=== PATIENT | female | born 1945 | race Caucasian/White ===

== ENCOUNTER 2016-11-27 01:46 | Inpatient (IN) | payer MEDICARE ==
[2016-11-27] VITALS (21 sets, daily range): BP systolic 90–213; BP diastolic 45–92; PULSE 81–110; RESP 18–35; O2SAT 88–98
[~2016-11-27] VITALS: Ht 165.1 cm; Wt 85.8 kg
[~2016-11-27 01:46] MED LIST: ACET325C PO; ALBU8.5H2 INHALATION; ARFO15VI2 NEB; ASPI-973 PO; ATEN25TA PO; CLOB50FO8 TP; CLOP75TA28 PO; Fish Oil PO; GLIM2TAB2 PO; IPRA3AMP IH; ISOS30TA4 PO; LIP40 PO; MAGN400O4 PO; MINO100C3 PO; NITR0.4T6 SL; SYMINH INHALATION; VENL75CA PO
[2016-11-27] MEDS ORDERED: Albuterol 2.5 mg/3 mL Inhalation Solution NEB ONE (01:55)
[2016-11-27] MEDS ORDERED: MethylprednisoLONE Sodium Succinate 62.5 mg/mL 2 mL Inj IVPUSH ONE (01:55)
[2016-11-27] MEDS ORDERED: Magnesium Sulf 2 Gm/50mL Water 2 GM in IV Premix 1 EACH IV ONE (01:55)
--- NOTE | 2016-11-27 01:58 | ED.REPORT ---
HPI-General Illness Date of Service Nov 27, 2016 ED Provider: Sarath Huang MD Patient is a 71 year old female with a history of diabetes mellitus, coronary artery disease with cardiac stenting, and severe COPD on 2L home oxygen and nighttime BiPAP who presents to the ED in respiratory distress onset 10:30 pm this evening. Patient was found by EMS to be pale, dusky, and hunched over. She had an initial O2 sat in the 60s. With nebulizer treatments and increased oxygen (6L) her O2 was increased to 91% on arrival to the ED. The patient is DNR /DNI, but EMS was unable to locate her POLST form. The patient was very anxious and appeared to be experiencing some mental status changes. History is limited by the patient's respiratory distress. She is a former smoker, stopping about ten years ago. Nursing Notes Stated Complaint: COPD Chief Complaint: Respiratory Distress Nursing Notes Reviewed: Yes Allergies: Coded Allergies: morphine (Verified Allergy, Severe, n&v, rash, 06/19/16) Uncoded Allergies: ADHESIVE TAPE (Allergy, Severe, RASH, 07/07/13) Scheduled ([Fish Oil]) PO BID Albuterol HFA (Proair HFA) 8.5 Gm Hfa.aer.ad 2 PUFFS INHALATION Q4H Arformoterol Tartrate (Brovana) 15 Mcg/2 Ml Vial.neb 15 MCG NEB BID Aspirin (Aspirin) 81 Mg Tablet 81 MG PO DAILY Atenolol (Atenolol) 25 Mg Tablet 25 MG PO BID Atorvastatin (Lipitor) 40 Mg Tablet 40 MG PO DAILY Budesonide/Formoterol 160-4.5 mcg Inh (Symbicort 160-4.5 mcg Inh) 120 Puff Inhaler 1 PUFF INHALATION BID Clopidogrel (Clopidogrel) 75 Mg Tablet 75 MG PO DIRECTED Every other day Glimepiride (Glimepiride) 2 Mg Tablet 2 MG PO DAILY Isosorbide MN ER (Isosorbide MN ER) 30 Mg Tab.er.24h 30 MG PO DAILY Magnesium Hydroxide (Milk of Magnesia) 400 Mg/5 Ml Oral.susp 400 MG PO HS Minocycline (Minocycline) 100 Mg Capsule 100 MG PO DAILY Venlafaxine ER (Effexor XR) 75 Mg Capsule 100 MG PO DAILY Scheduled PRN Acetaminophen (Acetaminophen) 325 Mg Capsule 325 MG PO PRN For Pain Ipratropium/Albuterol Sulfate (Iprat-Albut 0.5-3(2.5) mg/3 mL Inhalant Soln) 3 Ml Ampul.neb 3 ML IH Q6 PRN PRN For Shortness of Breath Miscellaneous Medications Clobetasol Propionate/Emoll (Clobetasol Emollnt 0.05% Foam) 50 Gm Foam 50 GM TP Nitroglycerin SL (Nitroglycerin SL) 0.4 Mg Tab.subl 0.4 MG SL General Time Seen by MD: 01:51 Chief Complaint Breathing problem Hx Obtained From: EMS Unable to Obtain Hx: Patient condition Arrived By: Ambulance Sudden in Onset?: No Onset Occurred: 1 - 4 hours ago Symptom Duration: Since onset Recent Healthcare: No recent doctor visit, No recent hospitalization Similar Sx Previous: Yes Past Medical History Past Medical History Severe chronic obstructive pulmonary disease -chronic respiratory failure, oxygen dependent Atherosclerotic coronary artery disease, cerebrovascular disease status-post several PCIs, 2 stents placed in 2003 and 3 stents placed in 2005 at [facility] [address] [place] -ECHO 2011 mild LVH, EF 60-65%, moderately dilated LA Atypical chest pain, with admissions in 2007, and February,Mar 2009, Aug 2009 -cardiac cath 2007,2008 at showing absence of any high-grade stenosis with only multiple, 30% lesions throughout the LAD without any evidence of restenosis Obstructive sleep apnea, on CPAP Reports: Diabetes mellitus, Hyperlipidemia, Hypertension Past Surgical History Hysterectomy Cholecystectomy Left carotid endarterectomy Cardiac stent placement x5 Smoking History Former Smoker Social History DNR/DNI Other Social History: Local resident Ambulatory Status Independent Review of Systems Unable to Obtain ROS Patient condition (respiratory distress) Physical Exam Vital Signs Vital Signs Date Time Temp Pulse Resp B/P Pulse Ox O2 Delivery O2 Flow Rate FiO2 11/27/16 03:43 95 28 92 BiPAP 50 11/27/16 03:31 94 30 122/84 93 BiPAP 11/27/16 03:08 31 97 50 11/27/16 03:00 98 30 126/60 97 BiPAP 11/27/16 02:15 106 31 178/61 96 BiPAP 11/27/16 01:52 110 35 213/92 88 15 Initial VS: Reviewed Skin: Warm, Dry, No cyanosis General/Constitutional: Awake, Alert Alertness: Positive: Confused Distress / Hydration: Positive: Distress moderate, Distress severe staring off Head / Eyes: Atraumatic, Normocephalic, PERRL ENT: Airway patent, Mucous membranes moist Neck: Supple, Non-tender Resp Distress / Stridor: Positive: Resp distress severe Diminished Breath Sounds: Positive: Decreased bilateral (barely audible) tripoding, maximal respiratory effort Cardiovascular: Regular rhythm Heart Rate / Rhythm: Positive: Tachycardia Heart Sounds / Murmur: Positive: Heart sounds diminished Abdomen: Soft, Non-tender Upper Extremities Upper Extremity / MS: No swelling, No edema Lower Extremity / Pelvis / MS: No swelling, No edema Neurologic: No motor deficits, No sensory deficits, CN II - XII intact Mental Status: Positive: Confused Interpretation & Diagnostics Lab Results Interpretation Result Diagram: 11/27/16 0210 11/27/16 0210 Test 11/27/16 02:10 White Blood Count 7.7th/mm3 (3.8-10.1) Red Blood Count 5.49mil/mm3 (3.90-5.20) Hemoglobin 15.5g/dL (12.0-15.6) Hematocrit 50.3% (35.0-46.0) Mean Corpuscular Volume 91.6fL (81-100) Mean Corpuscular Hemoglobin 28.2pg (27.0-35.0) Mean Corpuscular Hemoglobin Concent 30.8% (32.0-37.0) Red Cell Distribution Width 13.7% (12.3-15.4) Platelet Count 145bil/L (150-400) Neutrophils (%) (Auto) 61.0% (40-74) Lymphocytes (%) (Auto) 23.1% (14-46) Monocytes (%) (Auto) 14.6% (4-12) Eosinophils (%) (Auto) 0.3% (0-5) Basophils (%) (Auto) 0.7% (0-3) Sodium Level 136mEq/L (134-144) Potassium Level 4.4mEq/L (3.5-5.2) Chloride Level 95mEq/L (97-108) Carbon Dioxide Level 29mmol/L (18-29) Blood Urea Nitrogen 13mg/dL (8-27) Creatinine 0.47mg/dL (0.57-1.00) Estimat Glomerular Filtration Rate 188mL/min (>59) Glucose Level 230mg/dL (60-99) Calcium Level 9.7mg/dL (8.5-10.1) Magnesium Level 2.6mg/dL (1.6-2.6) Total Bilirubin 0.4mg/dL (0.0-1.2) Aspartate Amino Transf (AST/SGOT) 45U/L (0-50) Alanine Aminotransferase (ALT/SGPT) 51U/L (0-32) Alkaline Phosphatase 91U/L (25-165) Troponin T 0.010ug/L (0.0-0.011) Pro-B-Type Natriuretic Peptide 324.8pg/mL (0-301) Total Protein 7.4g/dL (6.4-8.4) Albumin 4.3g/dL (3.4-5.0) Hold Cavanaugh Top Tube Received (Received) ECG Interpretation ECG Interpretation: Sinus tachycardia, Rate 109 Biatrial enlargement Anterior infarct, old Time: 02:05 Interpreted by: ED physician X-Ray Chest Interpretation Chest Xray Interpretation: Impression: Increased markings bilateral lower lobes. May be a lingular infiltrate. View: Portable Interpretation / Wet Read by: Wet read ED physician Reviewed Previous Films: Worse Re-Eval/Medical Decision Med Decision/Clinical Course 71-year-old female in respiratory distress really respiratory extremist initially, improving slowly with multiple nebs and steroids and IV magnesium. She is on BiPAP and improving slowly. She declines intubation ever. She appears to be rallying at this point and will not require any more advanced intervention. She is admitted to the PCU for further nebs and management on BiPAP. Transported in improved condition. Source of Hx: Old records Time of Eval: 02:17 Re-Evaluation/Progress Note: Rechecked the patient. She now appears to have altered mental status, confused and waving. She is on BiPAP and is only mildly improved. Time of Eval: 03:34 Re-Evaluation/Progress Note: Informed the patient that she will be admitted to the hospital for further care. She is now able to have a conversation and drink coffee. Consultation : Referral / Consult Name: Corinna Andersen DO Consulted With: Hospitalist Call Returned at: 03:42 Keno Terminal Operator: Will see patient, Agrees with eval, Agrees with plan, Accepts admit Note: Spoke with Dr. Andersen, hospitalist, who agrees to accept admit. Counseled Regarding: Diagnosis, Lab results, Need for admission Discharge & Departure Primary Impression: COPD exacerbation Additional Impression: Respiratory failure Chronicity: acute Respiratory failure complication: hypoxia Qualified Code : J96.01 - Acute respiratory failure with hypoxia Disposition: ADMITTED TO HOSPITAL Discharge Condition All VS Reviewed: Yes Condition: Improved Referrals: Ryan Vu MD (PCP) Crit Care Except Billable Proc Time Spent: 30-74 minutes (sixty minutes) Services Performed: Patient management by me, Time spent at bedside, Reviewing test results, Reviewing imaging, Discussing patient care, Documentation in record, Time with fam/surrogate Scribe Attestation Portions of this note were transcribed by Tiesha Centeno. Dr. Sal Pryor personally performed the history, physical exam and medical decision-making; I reviewed and confirmed the accuracy of the information in the transcribed note. Signed by: Alex Zafar, 11/27/2016 0354 copies to: Ryan Vu MD, Christopher W MD Nov 27, 2016 01:58 Tiesha Centeno Nov 27, 2016 01:59 confused and waving. She is on BiPAP and is only mildly improved. Time of Eval: 03:34 Re-Evaluation/Progress Note: Informed the patient that she will be admitted to the hospital for further care. She is now able to have a conversation and drink coffee. Counseled Regarding: Diagnosis, Lab results, Need for admission Discharge & Departure Primary Impression: COPD exacerbation Disposition: ADMITTED TO HOSPITAL Discharge Condition All VS Reviewed: Yes Condition: Stable Referrals: Ryan Vu MD (PCP) Scribe Attestation Portions of this note were transcribed by Tiesha Centeno. Dr. Sal Pryor personally performed the history, physical exam and medical decision-making; I reviewed and confirmed the accuracy of the information in the transcribed note. Signed by: Alex Zafar, 11/27/2016 2100 copies to: Ryan Vu MD, Christopher W MD Nov 27, 2016 01:58 Tiesha Centeno Nov 27, 2016 01:59
[2016-11-27 02:18] LABS: BASOPHILS % (AUTO) 0.7 % (0-3); EOSINOPHILS % (AUTO) 0.3 % (0-5); MONOCYTES % (AUTO) 14.6 % (4-12); Mean Corpuscular Hemoglobin 28.2 pg (27.0-35.0); Mean Corpuscular Volume 91.6 fL (81-100); Platelet Count 145 bil/L (150-400)
[2016-11-27 02:44] LABS: TROPONIN T 0.01 ug/L (0.0-0.011)
[2016-11-27 02:56] LABS: Magnesium 2.6 mg/dL (1.6-2.6)
[2016-11-27] MEDS ORDERED: Albuterol 0.5% (5mg/mL) 20 mL Inhalation Solution NEB ONE (03:45)
[2016-11-27] MEDS ORDERED: Azithromycin Inj 500 MG in Dextrose 5% w/Vial Mate 250 ML IV ONE (03:45)
[2016-11-27] MEDS ORDERED: cefTRIAXone Inj 2,000 MG in Dextrose 5% Minibag Plus 50 ML IV ONE (03:45)
[2016-11-27] MEDS ORDERED: Alum-Mag Hydrox-Simeth 30 mL Suspension PO PRN ×2 (03:55→04:00)
[2016-11-27] MEDS ORDERED: Ondansetron 2 mg/mL 2 mL Inj IVPUSH PRN ×2 (03:55→04:00)
[2016-11-27] MEDS ORDERED: Polyethylene Glycol (PEG) 17 Gm Powder PO PRN (04:00)
--- NOTE | 2016-11-27 05:14 | PCM.HPMED ---
Subjective Date of Service Nov 27, 2016 Primary Provider: Admitting Physician: Corinna Andersen DO Primary Care Physician: Ryan Vu MD Attending Physician: Corinna Andersen DO Admit Status: From the Emergency Department Chief Complaint: Severe COPD exacerbation, hypoxia, acute respiratory failure History of Present Illness: Patient is a pleasant 71 Y/O F and fairly good historian given her respiratory distress with hx of DM on glipizide, CAD s/p stenting X 5, and severe COPD on 2L home oxygen and nighttime BiPAP. Patient presented to the ED via EMS in respiratory distress and hypoxic with O2 sats apparently in the 60's. Patient reported to this physician that her respiratory distress began about 24 hours prior to presentation, however had worsened at 10:30 pm this evening. Patient was found by EMS to be ashen and dusky as well as hunched over. Patient received nebulizer treatments and 6 Liters of O2 in the field with her saturation improving to 91% by arrival to the ED. Patient states that she has had similar episodes of COPD exacerbation in the past but not for some time. Patient lives at home with her sister Guerline. Associated symptoms include diaphoresis, shortness of breath, dyspnea, cough productive of michele colored mucus. Patient denies chest pain, nausea, vomiting, sick contacts. Patient is a former tobacco smoker. Chest x-ray with bilateral lower lung field opacification/consolidation worse on the left than the right, left-sided pleural effusion, as wet read by this physician EKG in ED: Sinus tachycardia with a rate of 106, mild right axis deviation, Q waves in V1 through V3, no ST or T-wave changes. Vital signs in the ED: Temperature 36.3, pulse 97, respiratory rate 32, blood pressure 90/45 (60) while sitting, pulse ox 91% on 12 liters oxygen mask. Hemogram showed: White blood cells 7.7, hemoglobin 15.5, hematocrit 50.3, platelets 145, monocytes 14.6 otherwise normal Chemistry panel: Chloride 95, creatinine 0.47, glucose 2:30, ALT 51, proBNP 324 , troponin 0.010. Otherwise normal chemistry panel. Patient received the following medications in the ED: Ceftriaxone 2000 mg once Azithromycin 500 mg once Albuterol neb 2 Methylprednisolone 125 mg once Magnesium sulfate 2 g once Review of Systems: A comprehensive review of systems was conducted and was negative except as mentioned in history of present illness. Allergies Coded Allergies: morphine (Verified Allergy, Severe, n&v, rash, 06/19/16) Uncoded Allergies: ADHESIVE TAPE (Allergy, Severe, RASH, 07/07/13) Home Medications Albuterol HFA (Proair HFA) 8.5 Gm Hfa.aer.ad 2 PUFFS INHALATION Q4H Arformoterol Tartrate (Brovana) 15 Mcg/2 Ml Vial.neb 15 MCG NEB BID Aspirin (Aspirin) 81 Mg Tablet 81 MG PO DAILY Atenolol (Atenolol) 25 Mg Tablet 25 MG PO BID Atorvastatin (Lipitor) 40 Mg Tablet 40 MG PO DAILY Budesonide/Formoterol 160-4.5 mcg Inh (Symbicort 160-4.5 mcg Inh) 120 Puff Inhaler 1 PUFF INHALATION BID Clopidogrel (Clopidogrel) 75 Mg Tablet 75 MG PO DIRECTED Every other day Glimepiride (Glimepiride) 2 Mg Tablet 2 MG PO DAILY Isosorbide MN ER (Isosorbide MN ER) 30 Mg Tab.er.24h 30 MG PO DAILY Magnesium Hydroxide (Milk of Magnesia) 400 Mg/5 Ml Oral.susp 400 MG PO HS Minocycline (Minocycline) 100 Mg Capsule 100 MG PO DAILY Venlafaxine ER (Effexor XR) 75 Mg Capsule 100 MG PO DAILY PRN Acetaminophen (Acetaminophen) 325 Mg Capsule 325 MG PO PRN For Pain Ipratropium/Albuterol Sulfate (Iprat-Albut 0.5-3(2.5) mg/3 mL Inhalant Soln) 3 Ml Ampul.neb 3 ML IH Q6 PRN PRN For Shortness of Breath Miscellaneous Medications Clobetasol Propionate/Emoll (Clobetasol Emollnt 0.05% Foam) 50 Gm Foam 50 GM TP Nitroglycerin SL (Nitroglycerin SL) 0.4 Mg Tab.subl 0.4 MG SL ([Fish Oil]) PO BID PMH Severe chronic obstructive pulmonary disease -chronic respiratory failure, oxygen dependent Atherosclerotic coronary artery disease, cerebrovascular disease status-post several PCIs, 2 stents placed in 2003 and 3 stents placed [place] [address] [facility] [address] [place] -ECHO 2011 mild LVH, EF 60-65%, moderately dilated LA Atypical chest pain, with admissions in 2007, and February,Mar 2009, Aug 2009 -cardiac cath at showing absence of any high-grade stenosis with only multiple, 30% lesions throughout the LAD without any evidence of restenosis Obstructive sleep apnea, on CPAP Reports: Diabetes mellitus, Hyperlipidemia, Hypertension Surgical History Hysterectomy Cholecystectomy Left carotid endarterectomy Cardiac stent placement x5 Social History Hx Alcohol Use: No Hx Substance Use: No Hx Tobacco Use: No Smoking Status: Former Smoker Living Arrangement: with Family (lives with sister Guerline at home) Exam Vital Signs Vital Sign - Last Date Time Temp Pulse Resp B/P Pulse Ox O2 Delivery O2 Flow Rate FiO2 11/27/16 04:51 97 32 97 40 11/27/16 04:25 36.3 90/45 OxyMask 12.00 Exam General: Alert and oriented, in acute respiratory distress on BiPAP mask, speaking in 2-3 word sentences. HEENT: NC/AT, eyes, PER, EOMI, neck, soft supple, no adenopathy, no JVD, no masses, no thyromegaly, wearing BiPAP mask Lungs: Inspiratory and expiratory wheezes, use crackles, moderate use of accessory muscles of respiration, adequate air movement, good respiratory effort. Heart: Regular rate and rhythm, no murmur, distant heart sounds secondary to COPD and increased anterior posterior diameter of chest, Abdomen: Soft, nontender, nondistended, bowel sounds active, no rebound, no guarding, Genitourinary: No CVA tenderness Extremities: Muscle strength, 5 out of 5 upper/lower extremity and symmetric laterally, pulses equal and symmetric upper/lower extremity including radial and dorsalis pedis, no edema Neurologic: Grossly neurologically intact, speaking in 2-3 word sentences, no focal neurological signs. Skin: Appears dry, and in warm, multiple multiple ecchymoses on the upper extremity dorsal arms bilaterally Lab and Diagnostics Result Diagram: 11/27/1620911/27/16209 X-Rays, CTs and MRIs Chest x-ray with bilateral lower lung field opacification/consolidation worse on the left than the right, left-sided pleural effusion, as wet read by this physician 12-lead ECG EKG in ED: Sinus tachycardia with a rate of 106, mild right axis deviation, Q waves in V1 through V3, no ST or T-wave changes. Assessment & Plan This is a pleasant 71-year-old female with past medical history of diabetes mellitus, former tobacco use, coronary artery disease status post stenting 5 and severe COPD on home oxygen and BiPAP at night who presented to the ED in cute respiratory distress and hypoxic respiratory failure. Patient currently on BiPAP mask satting at 91% # Acute COPD exacerbation, present on admission. - Patient has history of severe COPD, with multiple exacerbations in the past. She states that this episode is very similar and rated 8 out of 10 in severity compared to previous episodes. - Sputum culture ordered. - Consider ABG if needed - Patient currently on oxygen mask on 12 L satting 91% - Continue supplemental oxygen as needed and slowly titrate off. Goal SpO2 88% - 92%. - Given Solu-medrol 125 mg q6hr x3 then prednisone 40mg daily. - Continue antibiotics including ceftriaxone and azithromycin - Continue duo nebs 4 times a day while awake and albuterol nebs every 2 hours for shortness of breath. - IV fluids lactated Ringer's # Community-acquired pneumonia, present on admission, active - Chest x-ray with bilateral lower lung field opacification/consolidation worse on the left than the right, left-sided pleural effusion, as wet read by this physician - Continue IV antibiotics as above - Legionella and strep pneumo urine antigens ordered and pending - Influenza A and B ordered and pending - Pro calcitonin and ordered and pending # Hyperglycemia, present on admission, active - Blood glucose 230 - History of diabetes type II, and also likely secondary to steroid use - Continue to monitor # Transaminitis, present on admission, active - AST of 50, will continue to monitor. Chronic problems #Severe COPD, on BIPAP -Chronic respiratory failure, oxygen dependent -Albuterol MDI -Brovana 15 g per 2 mm nebs twice a day -On Symbicort 160/4.5 g puffer twice a day #Atherosclerotic coronary artery disease, status-post several PCIs, 2 stents placed in 2003 and [facility] -ECHO 2011 mild LVH, EF 60-65%, moderately dilated LA Hx of atypical chest pain, with admissions in 2007, and February,Mar 2009, Aug 2009 , -cardiac cath at showing absence of any high-grade stenosis with only multiple, 30% lesions throughout the LAD without any evidence of restenosis -We will continue home aspirin 1 mg daily -We will continue clopidogrel 75 mg daily -We will continue isosorbide mononitrate 30 mg daily #Obstructive sleep apnea, on BIPAP #Diabetes mellitus, -We will hold glipizide #Hyperlipidemia - We will continue atorvastatin 40 mg daily #Hypertension - We will continue atenolol 25 mg twice a day # Depression -We will continue home venlafaxine Disposition: Admitted to in patient service with expected length of stay greater than 2 days, secondary to severity of presenting symptoms, treatment plan, complexity of clinical work up, and risk of adverse events. CODE STATUS: DNR/DNI patient has POLST form but was EMS was unable locate. PCP: Ryan Daly DVT PE prophylaxis: SubQ heparin Q8H Contact: Sister Guerline Pain Evaluation: Adequate Pain Control VTE Prophylaxis: Sub-Q Heparin (Unfractionated) (patient also currently on Plavix at home.) Resuscitation Status: DNR/DNI:Do Not Resuscitate/Intubate Attending Statement The patient was seen and examined together with house staff on 11/27/2016 and I agree with the history, exam and plan as outlined in the note above. Nasim Roach DO Nov 27, 2016 05:14 Corinna Andersen DO Nov 27, 2016 06:27
[2016-11-27] MEDS: Lactated Ringer's 1,000 ML IV SCH ×2 (05:55→17:31)
[2016-11-27] MEDS: Albuterol-Ipratropium 3 mL Inhalation Solution NEB SCH ×6 (07:50→23:46)
--- NOTE | 2016-11-27 08:17 | DRSVH ---
PROCEDURE: X-RAY CHEST ONE VIEW, PORTABLE ([id number]) INDICATIONS: sob TECHNIQUE: One view of the chest was acquired. COMPARISON: 06/19/2016 FINDINGS: Surgical changes and devices: None. Lungs and pleura: No pleural effusions or pneumothorax. Hyperexpansion compatible with COPD again no yony. Interstitial infiltrate is now present in the lower lobes bilaterally. Mediastinum: Mediastinal contours appear normal. Heart size is normal. Bones and chest wall: No suspicious bony lesions. Overlying soft tissues appear unremarkable. IMPRESSION: Bilateral lower lobe interstitial pneumonia superimposed on chronic obstructive pulmonary disease. Dictated by: Ronni Hobbs M.D. on 11/27/2016 at 8:15 Approved by: Ronni Hobbs M.D. on 11/27/2016 at 8:16
[2016-11-27] MEDS ORDERED: MethylprednisoLONE Sodium Succinate 62.5 mg/mL 2 mL Inj IVPUSH SCH (08:30)
[2016-11-27] MEDS ORDERED: MINO50CA2 PO (08:37)
[2016-11-27] MEDS ORDERED: OMEG-38 PO (08:37)
[2016-11-27] MEDS ORDERED: VENL150C98 PO (08:37)
[2016-11-27] MEDS ORDERED: ATOR40TA69 PO (08:37)
[2016-11-27] MEDS: Sodium Chloride LOK Flush 10 mL Syringe IVFLUSH SCH ×2 (09:08→16:30)
[2016-11-27] MEDS: Heparin 5,000 Unit/mL Inj SUBQ SCH ×2 (09:08→17:36)
[2016-11-27] MEDS ORDERED: Glucose 40% Oral Gel 15 Gm Tube PO PRN (13:45)
--- NOTE | 2016-11-27 15:26 | PCM.PNMED ---
Subjective Date of Service Nov 27, 2016 Subjective Patient is still c/o shortness of breath. She is on BiPAP. She denies chest pain , nausea, vomiting. Exam Vital Signs Vital Sign - Last Date Time Temp Pulse Resp B/P Pulse Ox O2 Delivery O2 Flow Rate FiO2 11/27/16 12:47 36.4 87 20 127/61 95 BiPAP 35 11/27/16 04:25 12.00 Intake and Output 11/26/16 11/26/16 11/27/16 Cumulative From/Thru 15:00 23:00 07:00 11/27/16 01:52 - 11/27/16 05:59 Intake Total 200 ml 200 ml Output Total 100 ml 100 ml Balance 100 ml 100 ml Intake Oral 200 ml 200 ml Output Urine Total 100 ml 100 ml # Voids 1 1 Exam General: Alert and oriented, on BiPAP mask, speaking in 2-3 word sentences. HEENT: NC/AT, neck, soft supple, no adenopathy, no JVD, wearing BiPAP mask Lungs: Inspiratory and expiratory wheezes, crackles, moderate use of accessory muscles of respiration Heart: Regular rate and rhythm, no murmur, distant heart sounds Abdomen: Soft, nontender, nondistended, bowel sounds active Extremities: no edema Neurologic: Grossly neurologically intact IVs and Medications Medications Reviewed: Medications were reviewed in detail Lab and Diagnostics Result Diagram: 11/27/1620911/27/16 0210 X-Rays, CTs and MRIs Chest x-ray with bilateral lower lung field opacification/consolidation worse on the left than the right, left-sided pleural effusion, as wet read by this physician 12-lead ECG EKG in ED: Sinus tachycardia with a rate of 106, mild right axis deviation, Q waves in V1 through V3, no ST or T-wave changes. Assessment & Plan This is a pleasant 71-year-old female with past medical history of diabetes mellitus, former tobacco use, coronary artery disease status post stenting 5 and severe COPD on home oxygen and BiPAP at night who presented to the ED in acute respiratory distress and hypoxic respiratory failure. 1. Acute COPD exacerbation, present on admission. - Patient has history of severe COPD, with multiple exacerbations in the past. She states that this episode is very similar and rated 8 out of 10 in severity compared to previous episodes. - Sputum culture ordered. - Consider ABG if needed - Patient currently on BiPAP, O2 91% - Continue supplemental oxygen as needed and slowly titrate off. Goal SpO2 88% - 92%. - Given Solu-medrol 125 mg q6hr x2. Will start Prednisone 40mg daily tomorrow. - Continue antibiotics including ceftriaxone and azithromycin - Continue duo nebs 4 times a day while awake and albuterol nebs every 2 hours for shortness of breath. # Community-acquired pneumonia, present on admission, active - Chest x-ray with bilateral lower lung field opacification/consolidation worse on the left than the right, left-sided pleural effusion, as wet read by this physician - Continue IV antibiotics as above - Legionella and strep pneumo urine antigens ordered and pending - Viral PCR pending - Influenza A and B ordered and pending - Pro calcitonin 0.12 # Hyperglycemia, present on admission, active - Blood glucose 230 - History of diabetes type II, and also likely secondary to steroid use - Patient is on Glimepiride 2 mg PO daily at home - Low dose correctional insulin - Continue to monitor # Transaminitis, present on admission, active - AST of 50, will continue to monitor. Chronic problems #Severe COPD, on BIPAP -Chronic respiratory failure, oxygen dependent -Albuterol MDI -Brovana 15 g per 2 mm nebs twice a day at home, continue -On Symbicort 160/4.5 g puffer twice a day at home, continue #Atherosclerotic coronary artery disease, status-post several PCIs, 2 stents placed in 2003 and 3 stents placed in [address] [facility] [address] [place] -ECHO 2011 mild LVH, EF 60-65%, moderately dilated LA Hx of atypical chest pain, with admissions in 2007, and February,Mar 2009, Aug 2009 , -cardiac cath at showing absence of any high-grade stenosis with only multiple, 30% lesions throughout the LAD without any evidence of restenosis -Continue home aspirin 1 mg daily -Continue clopidogrel 75 mg daily -Continue isosorbide mononitrate 30 mg daily #Obstructive sleep apnea, on BIPAP #Diabetes mellitus, -Hold Glimepiride and start low dose insulin correctional scale #Hyperlipidemia - Continue atorvastatin 40 mg daily #Hypertension - Continue atenolol 25 mg twice a day # Depression -Continue home venlafaxine Disposition: Admitted to in patient service with expected length of stay greater than 2 days, secondary to severity of presenting symptoms, treatment plan, complexity of clinical work up, and risk of adverse events. CODE STATUS: DNR/DNI patient has POLST form but was EMS was unable locate. PCP: Ryan Daly DVT PE prophylaxis: SubQ heparin Q8H Contact: Sister Guerline Pain Evaluation: Adequate Pain Control VTE Prophylaxis: Sub-Q Heparin (Unfractionated) (patient also currently on Plavix at home.) Resuscitation Status: DNR/DNI:Do Not Resuscitate/Intubate Attending Statement The patient was seen and examined together with Dr. Jiang on 11/27/2016 and I agree with the history, exam and plan as outlined in the note above. . Milagro Jiang DO Nov 27, 2016 15:26 Mike Hercules MD Dec 01, 2016 17:47
[2016-11-27 17:20] LABS: APPEARANCE,URINE CLEAR (CLEAR,HAZY); COLOR,URINE YELLOW (YELLOW)
[2016-11-27 17:21] LABS: OCCULT BLOOD,URINE SMALL (NEGATIVE); UROBILINOGEN,URINE NORMAL (NORMAL)
[2016-11-27] MEDS: Insulin LISPRO 300 Unit/3 mL Inj SUBQ SCH ×2 (18:18→21:29)
[2016-11-27] MEDS: Budesonide 0.5 mg/2 mL Inhalation Solution NEB SCH (20:04)
[2016-11-27] MEDS: Arformoterol 15 mCg/2 mL Inhalation Solution NEB SCH (20:25)
[2016-11-27] MEDS ORDERED: Fluticasone-Salmererol 250-50 Inhaler INHALATION SCH (20:30)
[2016-11-28] VITALS (15 sets, daily range): BP systolic 111–165; BP diastolic 56–85; PULSE 47–94; RESP 18–32; O2SAT 88–96
[2016-11-28] MEDS: Sodium Chloride LOK Flush 10 mL Syringe IVFLUSH SCH ×3 (00:10→16:13)
[2016-11-28] MEDS: Heparin 5,000 Unit/mL Inj SUBQ SCH ×4 (00:10→23:52)
[2016-11-28] MEDS: Albuterol-Ipratropium 3 mL Inhalation Solution NEB SCH ×5 (02:35→20:30)
[2016-11-28] MEDS: Lactated Ringer's 1,000 ML IV SCH ×3 (03:17→23:52)
[2016-11-28 03:45] LABS: BASOPHILS % (AUTO) 0.2 % (0-3); EOSINOPHILS % (AUTO) 4.7 % (0-5); MONOCYTES % (AUTO) 14.9 % (4-12); Mean Corpuscular Hemoglobin 27.6 pg (27.0-35.0); Mean Corpuscular Volume 90.5 fL (81-100); NEUTROPHILS % (AUTO) 70.6 % (40-74); Platelet Count 114 bil/L (150-400)
[2016-11-28] MEDS ORDERED: cefTRIAXone Inj 2,000 MG in Dextrose 5% Minibag Plus 50 ML IV SCH (04:00)
[2016-11-28] MEDS: Albuterol 1.25 mg/3 mL Inhalation Solution NEB PRN (04:05)
[2016-11-28] MEDS ORDERED: Azithromycin Inj 500 MG in Dextrose 5% w/Vial Mate 250 ML IV SCH (07:30)
[2016-11-28] MEDS: Budesonide 0.5 mg/2 mL Inhalation Solution NEB SCH ×2 (07:41→19:47)
[2016-11-28] MEDS: Arformoterol 15 mCg/2 mL Inhalation Solution NEB SCH ×2 (07:41→19:47)
[2016-11-28] MEDS: Insulin LISPRO 300 Unit/3 mL Inj SUBQ SCH ×4 (08:00→20:07)
[2016-11-28] MEDS ORDERED: predniSONE 20 mg Tablet PO SCH (08:30)
[2016-11-28] MEDS: Venlafaxine XR 75 mg ER24 Capsule PO SCH (09:06)
[2016-11-28] MEDS: Isosorbide Mononitrate 30 mg ER24 Tablet PO SCH (09:07)
--- NOTE | 2016-11-28 10:25 | PCM.PNMED ---
Subjective Date of Service Nov 28, 2016 Subjective Patient is still struggling with breathing. C/o headache last night x 2 for which was given Tylenol. Continues to desats every time she is up to commode. Exam Vital Signs Vital Sign - Last Date Time Temp Pulse Resp B/P Pulse Ox O2 Delivery O2 Flow Rate FiO2 11/28/16 09:00 36.6 47 125/85 92 BiPAP 45 11/28/16 07:44 28 11/27/16 04:25 12.00 Intake and Output 11/27/16 11/27/16 11/28/16 Cumulative From/Thru 15:00 23:00 07:00 11/27/16 01:52 - 11/28/16 06:26 Intake Total 1978 ml 600 ml 2778 ml Output Total 1800 ml 1950 ml 3850 ml Balance 178 ml -1350 ml -1072 ml Intake Oral 720 ml 600 ml 1520 ml IV Total 1258 ml 1258 ml Output Urine Total 1300 ml 800 ml 2200 ml Urine/Stool Mix 500 ml 1150 ml 1650 ml # Voids 3 4 # Bowel Movements 3 3 Exam General: Alert and oriented, on BiPAP mask, speaking in 2-3 word sentences. HEENT: NC/AT, neck, soft supple, no adenopathy, no JVD, wearing BiPAP mask Lungs: Inspiratory and expiratory wheezes, crackles, moderate use of accessory muscles of respiration Heart: Regular rate and rhythm, no murmur, distant heart sounds Abdomen: Soft, nontender, nondistended, bowel sounds active Extremities: no edema Neurologic: Grossly neurologically intact IVs and Medications Medications Reviewed: Medications were reviewed in detail Lab and Diagnostics Result Diagram: 11/28/16 0320 11/28/16 0320 X-Rays, CTs and MRIs Chest x-ray with bilateral lower lung field opacification/consolidation worse on the left than the right, left-sided pleural effusion, as wet read by this physician 12-lead ECG EKG in ED: Sinus tachycardia with a rate of 106, mild right axis deviation, Q waves in V1 through V3, no ST or T-wave changes. Assessment & Plan This is a pleasant 71-year-old female with past medical history of diabetes mellitus, former tobacco use, coronary artery disease status post stenting 5 and severe COPD on home oxygen and BiPAP at night who presented to the ED in acute respiratory distress and hypoxic respiratory failure. Hospital day 2. 1. Acute COPD exacerbation, present on admission, active. - Patient has history of severe COPD, with multiple exacerbations in the past. She states that this episode is very similar and rated 8 out of 10 in severity compared to previous episodes. - Sputum culture pending - Consider ABG if needed - Patient currently on BiPAP, O2 92% - Continue supplemental oxygen as needed and slowly titrate off. Goal SpO2 88% - 92%. - Start Prednisone 40mg daily today - Continue antibiotics including ceftriaxone and azithromycin - Continue duo nebs 4 times a day while awake and albuterol nebs every 2 hours for shortness of breath. 2. Community-acquired pneumonia, present on admission, active - Chest x-ray with bilateral lower lung field opacification/consolidation worse on the left than the right, left-sided pleural effusion, as wet read by this physician - Continue antibiotics as above - Legionella and strep pneumo urine antigens negative - Viral PCR positive for Human Metapneumovirus - Influenza A and B ordered and pending - Pro calcitonin 0.12 - Continue supportive treatment 3. Hyperglycemia, present on admission, improving - Blood glucose 140 this morning - History of diabetes type II, and also likely secondary to steroid use - Patient is on Glimepiride 2 mg PO daily at home - Low dose correctional insulin - Continue to monitor 4. Transaminitis, present on admission, active - AST 71, ALT 61 this morning - continue to monitor Chronic problems #Severe COPD, on BIPAP -Chronic respiratory failure, oxygen dependent -Albuterol MDI -Brovana 15 g per 2 mm nebs twice a day at home, continue -On Symbicort 160/4.5 g puffer twice a day at home, continue #Atherosclerotic coronary artery disease, status-post several PCIs, 2 stents placed in 2003 and 3 stents placed in [address] [facility] [address] [place] -ECHO 2011 mild LVH, EF 60-65%, moderately dilated [place] Hx of atypical chest pain, with admissions in 2007, and February,Mar 2009, Aug 2009 , -cardiac cath at showing absence of any high-grade stenosis with only multiple, 30% lesions throughout the LAD without any evidence of restenosis -Continue home aspirin 1 mg daily -Continue clopidogrel 75 mg daily -Continue isosorbide mononitrate 30 mg daily #Obstructive sleep apnea, on BIPAP #Diabetes mellitus, -Hold Glimepiride and start low dose insulin correctional scale #Hyperlipidemia - Continue atorvastatin 40 mg daily #Hypertension - Continue atenolol 25 mg twice a day # Depression -Continue home venlafaxine Disposition: Admitted to in patient service with expected length of stay greater than 2 days, secondary to severity of presenting symptoms, treatment plan, complexity of clinical work up, and risk of adverse events. CODE STATUS: DNR/DNI patient has POLST form but was EMS was unable locate. PCP: Ryan Daly DVT PE prophylaxis: SubQ heparin Q8H Contact: Sister Guerline Pain Evaluation: Adequate Pain Control VTE Prophylaxis: Sub-Q Heparin (Unfractionated) (patient also currently on Plavix at home.) Resuscitation Status: DNR/DNI:Do Not Resuscitate/Intubate Attending Statement The patient was seen and examined together with Dr. Jiang on 11/28/2016 and I agree with the history, exam and plan as outlined in the note above. . Milagro Jiang DO Nov 28, 2016 10:25 Mike Hercules MD Dec 01, 2016 17:47
[2016-11-28] MEDS ORDERED: Magnesium Hydroxide 10 mL Oral Concentration PO SCH (21:00)
[2016-11-29] VITALS (11 sets, daily range): BP systolic 107–164; BP diastolic 45–78; PULSE 59–89; RESP 20–37; O2SAT 85–95
[2016-11-29] MEDS: Sodium Chloride LOK Flush 10 mL Syringe IVFLUSH SCH ×3 (00:30→16:48)
[2016-11-29] MEDS: Albuterol-Ipratropium 3 mL Inhalation Solution NEB SCH ×5 (00:30→20:24)
[2016-11-29 02:59] LABS: BASOPHILS % (AUTO) 0.5 % (0-3); EOSINOPHILS % (AUTO) 0.8 % (0-5); MONOCYTES % (AUTO) 23.8 % (4-12); Mean Corpuscular Hemoglobin 27.4 pg (27.0-35.0); Mean Corpuscular Volume 91.9 fL (81-100); Platelet Count 112 bil/L (150-400)
[2016-11-29] MEDS: Albuterol 1.25 mg/3 mL Inhalation Solution NEB PRN (05:25)
--- NOTE | 2016-11-29 06:12 | ABG ---
DateTimeAnalyzed 06:08:00 -_ pH ____7.301 - 7.350 7.450 pCO2 ___88.4__ -mmHg 35.0 45.0 pO2 ___59.0__ -mmHg 69.0 116 HCO3- ___42.3__ -mmol/L 22.0 26.0 ABE ___11.5__ -mmol/L -2.0 2.0 tHb ___15.2__ -g/dL O2Hb ___88.4__ -% COHb ____1.5__ -% MetHb ____0.9__ -% sO2 ___90.6__ -% FIO2 ___40.0__ -% Pressure_Support ___12.0__ -cmH2O PEEP ____5.0__ -cmH2O Vt __369.0__ -L Drawn By MD - Date/Time Notified____ 06:11:00 -_ Spontaneous_RR ___33.0__ -b/min Oxygen Device 1 ____BIPAP - Notified By MD - Notified Whom RN C.GARCIA - B 754 -mmHg tO2 ___18.8__ -Vol% Magdy test N/A -
[2016-11-29] MEDS: Insulin LISPRO 300 Unit/3 mL Inj SUBQ SCH ×3 (08:00→17:01)
[2016-11-29] MEDS ORDERED: HYDROmorphone 0.5 mg/0.5 mL iSecure Syringe IVPUSH PRN (08:30)
[2016-11-29] MEDS: Heparin 5,000 Unit/mL Inj SUBQ SCH ×2 (08:30→15:46)
[2016-11-29] MEDS: MethylprednisoLONE Sodium Succinate 62.5 mg/mL 2 mL Inj IVPUSH SCH ×2 (09:26→16:49)
[2016-11-29] MEDS: Arformoterol 15 mCg/2 mL Inhalation Solution NEB SCH ×2 (09:50→20:24)
[2016-11-29] MEDS: Budesonide 0.5 mg/2 mL Inhalation Solution NEB SCH ×2 (09:50→20:24)
--- NOTE | 2016-11-29 09:59 | PCM.PNMED ---
Subjective Date of Service Nov 29, 2016 Subjective Per nurse report, pt C/O dyspnea with exertion. States decreased appetite. Pt on Bipap all shift. Setting 40% FiO2 with SpO2's 91-94%, lung sounds decreased. Pt will sit in tripod position for several hours then will lay down for several hours. Also c/o moderate back pain since last night, IV Dilaudid ordered. Exam Vital Signs Vital Sign - Last Date Time Temp Pulse Resp B/P Pulse Ox O2 Delivery O2 Flow Rate FiO2 11/29/16 03:52 88 28 92 40 11/29/16 03:29 36.3 164/78 BiPAP 11/27/16 04:25 12.00 Intake and Output 11/28/16 11/28/16 11/29/16 Cumulative From/Thru 14:59 22:59 06:59 11/27/16 01:52 - 11/29/16 05:06 Intake Total 1839 ml 1432 ml 6049 ml Output Total 650 ml 500 ml 5000 ml Balance 1189 ml 932 ml 1049 ml Intake Oral 700 ml 400 ml 2620 ml IV Total 1139 ml 1032 ml 3429 ml Output Urine Total 650 ml 500 ml 3350 ml Urine/Stool Mix 1650 ml # Voids 4 # Bowel Movements 0 1 4 Exam General: Alert and oriented, on BiPAP mask, in moderate distress d/t difficulties breathing HEENT: NC/AT, neck, soft supple, no adenopathy, no JVD, wearing BiPAP mask Lungs: Inspiratory and expiratory wheezes, crackles, moderate use of accessory muscles of respiration Heart: Regular rate and rhythm, no murmur, distant heart sounds Abdomen: Soft, nontender, nondistended, bowel sounds active Extremities: no edema Neurologic: Grossly neurologically intact Lab and Diagnostics Result Diagram: 11/29/16 0250 11/29/16 0250 X-Rays, CTs and MRIs Chest x-ray with bilateral lower lung field opacification/consolidation worse on the left than the right, left-sided pleural effusion, as wet read by this physician 12-lead ECG EKG in ED: Sinus tachycardia with a rate of 106, mild right axis deviation, Q waves in V1 through V3, no ST or T-wave changes. Assessment & Plan This is a pleasant 71-year-old female with past medical history of diabetes mellitus, former tobacco use, coronary artery disease status post stenting 5 and severe COPD on home oxygen and BiPAP at night who presented to the ED in acute respiratory distress and hypoxic respiratory failure. Hospital day 3. 1. Acute COPD exacerbation, present on admission, active. - Patient has history of severe COPD, with multiple exacerbations in the past. She states that this episode is very similar and rated 8 out of 10 in severity compared to previous episodes. - Sputum culture negative - Consider ABG if needed - Patient currently on BiPAP, O2 92% - Continue supplemental oxygen as needed and slowly titrate off. Goal SpO2 88% - 92%. - D/C oral Prednisone 40mg daily and restart IV Solu-Medrol 125 mg q8h d/t decline in respiratory status - D/C ceftriaxone and continue azithromycin 250 mg qd x 4 days (day 2) - Continue duo nebs 4 times a day while awake and albuterol nebs every 2 hours for shortness of breath. 2. Community-acquired pneumonia, present on admission, active - Chest x-ray with bilateral lower lung field opacification/consolidation worse on the left than the right, left-sided pleural effusion, as wet read by this physician - Continue antibiotic as above - Legionella and strep pneumo urine antigens negative - Viral PCR positive for Human Metapneumovirus - Influenza A and B ordered and pending - Pro calcitonin 0.12 - Repeat CXR - Continue supportive treatment 3. Hyperglycemia, present on admission, improving - Blood glucose 121 this morning - History of diabetes type II, and also likely secondary to steroid use - Patient is on Glimepiride 2 mg PO daily at home - Low dose correctional insulin - Continue to monitor 4. Transaminitis, present on admission, improving - AST 66 (71), ALT 56 (61) this morning - continue to monitor Chronic problems #Severe COPD, on BIPAP -Chronic respiratory failure, oxygen dependent -Albuterol MDI -Brovana 15 g per 2 mm nebs twice a day at home, continue -On Symbicort 160/4.5 g puffer twice a day at home, continue #Atherosclerotic coronary artery disease, status-post several PCIs, 2 stents placed in 2003 and 3 stents placed in 2005 at [facility] [address] [facility] -ECHO 2011 mild LVH, EF 60-65%, moderately dilated LA Hx of atypical chest pain, with admissions in 2007, and February,Mar 2009, Aug 2009 , -cardiac cath at showing absence of any high-grade stenosis with only multiple, 30% lesions throughout the LAD without any evidence of restenosis -Continue home aspirin 1 mg daily -Continue clopidogrel 75 mg daily -Continue isosorbide mononitrate 30 mg daily #Obstructive sleep apnea, on BIPAP #Diabetes mellitus, -Hold Glimepiride and start low dose insulin correctional scale #Hyperlipidemia - Continue atorvastatin 40 mg daily #Hypertension - Continue atenolol 25 mg twice a day # Depression -Continue home venlafaxine Disposition: Admitted to in patient service with expected length of stay greater than 2 days, secondary to severity of presenting symptoms, treatment plan, complexity of clinical work up, and risk of adverse events. CODE STATUS: DNR/DNI patient has POLST form but was EMS was unable locate. PCP: yRan Daly DVT PE prophylaxis: SubQ heparin Q8H Contact: Sister Guerline Pain Evaluation: Adequate Pain Control VTE Prophylaxis: Sub-Q Heparin (Unfractionated) (patient also currently on Plavix at home.) Resuscitation Status: DNR/DNI:Do Not Resuscitate/Intubate Attending Statement The patient was seen and examined together with Dr. Jiang on 11/29/2016 and I agree with the history, exam and plan as outlined in the note above. . Milagro Jiang DO Nov 29, 2016 06:57 Mike Hercules MD Dec 01, 2016 17:48
[2016-11-29] MEDS: Lactated Ringer's 1,000 ML IV SCH ×2 (11:21→15:54)
[2016-11-29] MEDS: Isosorbide Mononitrate 30 mg ER24 Tablet PO SCH (15:49)
[2016-11-29] MEDS: Venlafaxine XR 75 mg ER24 Capsule PO SCH (15:49)
--- NOTE | 2016-11-30 08:08 | PCM.PNMED ---
Subjective Date of Service Nov 29, 2016 Subjective I received page from nursing staff Marquez Rubi RN regarding patients status and her desire to speak with physician secondary to her no longer wishing go on living. I was informed that patients family to include patients son, daughter in-law and sister were present in the room. Prior to having had an opportunity to make it to patients room to speak with her and family, I again received a cook page from nursing staff regarding patient being agitated and restless. I placed orders for ativan IV, and then immediately went to check on patient. Upon entering patient room I found her to have removed her Bipap mask, which had apparently occurred several times per family member reports. Patient appeared quite dusky and was struggling to breath with severely increased work of breathing and use of accessory muscles of respiration. She was responding to questioning at this time however with a great deal of effort to simply say no more. I encouraged her to leave the oxy mask on until ativan could be given. Patient complied. Once ativan was given patient became calm and indicated although briefly that she was more comfortable. Family was present during this entire time. Patient then removed mask one last time. Patient sats were in the 30% range at this time and her respirations quickly became Eric- Gillespie like. Patient became unresponsive and maintained this labored breathing patter for approximately an hour and 20 minutes when she then at around 2100 on 11/29/2016. Exam Vital Signs Vital Sign - Last Date Time Temp Pulse Resp B/P Pulse Ox O2 Delivery O2 Flow Rate FiO2 11/29/16 18:01 36.6 89 20 123/76 85 BiPAP 11/29/16 14:27 40 11/27/16 04:25 12.00 Intake and Output 11/29/16 11/29/16 11/30/16 Cumulative From/Thru 15:00 23:00 07:00 11/27/16 01:52 - 11/29/16 18:48 Intake Total 1858 ml 7907 ml Output Total 0 ml 5000 ml Balance 1858 ml 2907 ml Intake Oral 650 ml 3270 ml IV Total 1208 ml 4637 ml Output Urine Total 0 ml 3350 ml Urine/Stool Mix 1650 ml # Voids 4 # Bowel Movements 4 Exam General: Patient appeared to distress, and facial skin was dusky, and had labored breathing, responding to questioning with 1 word sentences. HEENT: NC/AT, oral mucous membranes appeared dry, skin of face appeared severely dusky, Lungs: Respirations were labored with increased work of breathing and use of accessory muscles of respiration, patient appeared to be in severe respiratory distress, and was removing refusing BiPAP mask. Heart: Tachycardic and with regular rhythm, no murmur, Extremities, upper extremity pulses were thready bilaterally Neurologic: Patient was responding initially to commands with 1 word sentences. Skin: As previously stated was dusky, Lab and Diagnostics Result Diagram: 11/29/16 0250 11/29/162019 X-Rays, CTs and MRIs Chest x-ray with bilateral lower lung field opacification/consolidation worse on the left than the right, left-sided pleural effusion, as wet read by this physician 12-lead ECG EKG in ED: Sinus tachycardia with a rate of 106, mild right axis deviation, Q waves in V1 through V3, no ST or T-wave changes. Assessment & Plan VTE Prophylaxis: Sub-Q Heparin (Unfractionated) Resuscitation Status: DNR/DNI:Do Not Resuscitate/Intubate Nasim Roach DO Nov 30, 2016 08:08 Jors Ricci MD Dec 01, 2016 04:03 to keep BiPAP mask in place. Patient spaces desired to not go on living several times. Family was present in the room when patient . 1. Acute COPD exacerbation, present on admission, active. - Patient has history of severe COPD, with multiple exacerbations in the past. She states that this episode is very similar and rated 8 out of 10 in severity compared to previous episodes. - Sputum culture negative - Consider ABG if needed - Patient currently on BiPAP, O2 92% - Continue supplemental oxygen as needed and slowly titrate off. Goal SpO2 88% - 92%. - D/C oral Prednisone 40mg daily and restart IV Solu-Medrol 125 mg q8h d/t decline in respiratory status - D/C ceftriaxone and continue azithromycin 250 mg qd x 4 days (day 2) - Continue duo nebs 4 times a day while awake and albuterol nebs every 2 hours for shortness of breath. 2. Community-acquired pneumonia, present on admission, active - Chest x-ray with bilateral lower lung field opacification/consolidation worse on the left than the right, left-sided pleural effusion, as wet read by this physician - Continue antibiotic as above - Legionella and strep pneumo urine antigens negative - Viral PCR positive for Human Metapneumovirus - Influenza A and B ordered and pending - Pro calcitonin 0.12 - Repeat CXR - Continue supportive treatment 3. Hyperglycemia, present on admission, improving - Blood glucose 121 this morning - History of diabetes type II, and also likely secondary to steroid use - Patient is on Glimepiride 2 mg PO daily at home - Low dose correctional insulin - Continue to monitor 4. Transaminitis, present on admission, improving - AST 66 (71), ALT 56 (61) this morning - continue to monitor Chronic problems #Severe COPD, on BIPAP -Chronic respiratory failure, oxygen dependent -Albuterol MDI -Brovana 15 g per 2 mm nebs twice a day at home, continue -On Symbicort 160/4.5 g puffer twice a day at home, continue #Atherosclerotic coronary artery disease, status-post several PCIs, 2 stents placed in 2003 and 3 stents placed in 2005 at [facility] [address] [place] -ECHO 2011 mild LVH, EF 60-65%, moderately dilated [place] Hx of atypical chest pain, with admissions in 2007, and February,Mar 2009, Aug 2009 , -cardiac cath at showing absence of any high-grade stenosis with only multiple, 30% lesions throughout the LAD without any evidence of restenosis -Continue home aspirin 1 mg daily -Continue clopidogrel 75 mg daily -Continue isosorbide mononitrate 30 mg daily #Obstructive sleep apnea, on BIPAP #Diabetes mellitus, -Hold Glimepiride and start low dose insulin correctional scale #Hyperlipidemia - Continue atorvastatin 40 mg daily #Hypertension - Continue atenolol 25 mg twice a day # Depression -Continue home venlafaxine Disposition: Admitted to in patient service with expected length of stay greater than 2 days, secondary to severity of presenting symptoms, treatment plan, complexity of clinical work up, and risk of adverse events. CODE STATUS: DNR/DNI patient has POLST form but was EMS was unable locate. PCP: Ryan Daly DVT PE prophylaxis: SubQ heparin Q8H Contact: Sister Guerline VTE Prophylaxis: Sub-Q Heparin (Unfractionated) Resuscitation Status: DNR/DNI:Do Not Resuscitate/Intubate Nasim Roach DO Nov 30, 2016 08:08
--- NOTE | 2016-11-30 08:42 | DRSVH ---
PROCEDURE: X-RAY CHEST ONE VIEW ([id number]) INDICATIONS: shortness of breath TECHNIQUE: One view of the chest was acquired. COMPARISON: [facility], CR, XR CHEST 2VW, 06/19/2016, 10:51. FINDINGS: Surgical changes and devices: None. Lungs and pleura: No pleural effusions or pneumothorax. Mild patchy opacity at the right lung base. Mediastinum: Mediastinal contours appear normal. Heart size is normal. Bones and chest wall: No suspicious bony lesions. Overlying soft tissues appear unremarkable. IMPRESSION: Right basilar pneumonia. Continued plain film surveillance is recommended to ensure resol ution, and to exclude underlying or central malignancy. Dictated by: Erica Castañeda M.D. on 11/30/2016 at 8:25 Approved by: Erica Castañeda M.D. on 11/30/2016 at 8:41
--- NOTE | 2016-11-30 18:07 | PCM.DC.MED ---
Discharge Summary Date of Service Nov 30, 2016 Dates of Hospitalization Date of Hospital Admission Nov 27, 2016 at 03:51 Date of Discharge: Nov 29, 2016 Providers: Admitting Physician: Corinna Andersen DO Primary Care Physician: Ryan Vu MD Attending Physician: Corinna Andersen DO SUMMARY Diagnosis at Time of Discharge Diagnosis at Time of Discharge Acute COPD exacerbation Community-acquired pneumonia Hyperglycemia, present on admission Transaminitis, present on admission Severe COPD, on BIPAP Atherosclerotic coronary artery disease, status-post several PCIs, 2 stents placed in 2003 and 3 stents placed in [address] [facility] [address] [facility] Obstructive sleep apnea, on BIPAP Diabetes mellitus Hyperlipidemia Hypertension Depression Procedures XRay, CTs & MRIs Chest x-ray with bilateral lower lung field opacification/consolidation worse on the left than the right, left-sided pleural effusion, as wet read by this physician ECG 12 Lead EKG in ED: Sinus tachycardia with a rate of 106, mild right axis deviation, Q waves in V1 through V3, no ST or T-wave changes. Brief History Per admit note by Dr. Nasim Roach: Patient is a pleasant 71 Y/O F and fairly good historian given her respiratory distress with hx of DM on glipizide, CAD s/p stenting X 5, and severe COPD on 2L home oxygen and nighttime BiPAP. Patient presented to the ED via EMS in respiratory distress and hypoxic with O2 sats apparently in the 60's. Patient reported to this physician that her respiratory distress began about 24 hours prior to presentation, however had worsened at 10:30 pm this evening. Patient was found by EMS to be ashen and dusky as well as hunched over. Patient received nebulizer treatments and 6 Liters of O2 in the field with her saturation improving to 91% by arrival to the ED. Patient states that she has had similar episodes of COPD exacerbation in the past but not for some time. Patient lives at home with her sister Guerline. Associated symptoms include diaphoresis, shortness of breath, dyspnea, cough productive of michele colored mucus. Patient denies chest pain, nausea, vomiting, sick contacts. Patient is a former tobacco smoker. Chest x-ray with bilateral lower lung field opacification/consolidation worse on the left than the right, left-sided pleural effusion, as wet read by this physician EKG in ED: Sinus tachycardia with a rate of 106, mild right axis deviation, Q waves in V1 through V3, no ST or T-wave changes. Vital signs in the ED: Temperature 36.3, pulse 97, respiratory rate 32, blood pressure 90/45 (60) while sitting, pulse ox 91% on 12 liters oxygen mask. Hemogram showed: White blood cells 7.7, hemoglobin 15.5, hematocrit 50.3, platelets 145, monocytes 14.6 otherwise normal Chemistry panel: Chloride 95, creatinine 0.47, glucose 2:30, ALT 51, proBNP 324 , troponin 0.010. Otherwise normal chemistry panel. Patient received the following medications in the ED: Ceftriaxone 2000 mg once Azithromycin 500 mg once Albuterol neb 2 Methylprednisolone 125 mg once Magnesium sulfate 2 g once Hospital Course Patient was a 71-year-old female with past medical history of diabetes mellitus , former tobacco use, coronary artery disease status post stenting 5 and severe COPD on home oxygen and BiPAP at night who presented to the ED in acute respiratory distress and hypoxic respiratory failure. Patient was admitted for acute COPD exacerbation and community acquired pneumonia. Patient was placed on BiPAP. She was started on prednisone and antibiotics ceftriaxone and azithromycin for treatment of the COPD. Respiratory virus panel returned positive for metapneumovirus. Patient's respiratory status deteriorated with increased work of breathing. During hospital day #3 the patient refused to keep her BiPAP mask on and made the decision with the presence of her family to cease therapy and be made comfort care. Patient at approximately 21:00 on 11/29/2016. Exam Vital Signs (Last) Date Time Temp Pulse Resp B/P Pulse Ox O2 Delivery O2 Flow Rate FiO2 11/29/16 18:01 36.6 89 20 123/76 85 BiPAP 11/29/16 14:27 40 11/27/16 04:25 12.00 Test 11/27/16 02:10 11/27/16 06:37 11/27/16 16:48 11/29/16 02:50 Magnesium Level 2.6mg/dL (1.6-2.6) Troponin T 0.010ug/L (0.0-0.011) Pro-B-Type Natriuretic Peptide 324.8pg/mL (0-301) Hold Cavanaugh Top Tube Received (Received) Procalcitonin 0.12ng/mL (0.00-0.08) Urine Color Yellow (YELLOW) Urine Appearance Clear (CLEAR,HAZY) Urine pH 6.0 (5.0-8.0) Urine Specific [place] 1.015 (1.003-1.035) Urine Protein 30mg/dL (NEG,TRACE) Urine Glucose (UA) Negativemg/dL (NEGATIVE) Urine Ketones Negativemg/dL (NEGATIVE) Urine Occult Blood Small (NEGATIVE) Urine Nitrite Negative (NEGATIVE) Urine Bilirubin Negative (NEGATIVE) Urine Urobilinogen Normalmg/dL (NORMAL) Urine Leukocyte Esterase Negative (NEGATIVE) Urine RBC 0-2/hpf (0-2) Urine WBC 0-5/hpf (0-5) Urine Epithelial Cells Occasional/hpf (NONE-MOD) Urine Crystals None seen (NONE SEEN) Urine Bacteria None/hpf (NONE-FEW) Urine Hyaline Casts None/lpf (NONE) Urine Granular Casts None seen (NONE SEEN) Urine Waxy Casts None seen (NONE SEEN) Urine Red Blood Cell Casts None seen (NONE SEEN) Urine White Blood Cell Casts None seen (NONE SEEN) Urine Mucus None seen (None Seen) Urine Trichomonas None seen (NONE SEEN) Urine Yeast None (NONE SEEN) Urinalysis Comment None Urine Culture Reflexed Not indicated Urine Legionella pneumophilia Ag Negative (Negative) White Blood Count 9.1th/mm3 (3.8-10.1) Red Blood Count 5.83mil/mm3 (3.90-5.20) Hemoglobin 16.0g/dL (12.0-15.6) Hematocrit 53.6% (35.0-46.0) Mean Corpuscular Volume 91.9fL (81-100) Mean Corpuscular Hemoglobin 27.4pg (27.0-35.0) Mean Corpuscular Hemoglobin Concent 29.9% (32.0-37.0) Red Cell Distribution Width 13.7% (12.3-15.4) Platelet Count 112bil/L (150-400) Neutrophils (%) (Auto) 60.0% (40-74) Lymphocytes (%) (Auto) 14.5% (14-46) Monocytes (%) (Auto) 23.8% (4-12) Eosinophils (%) (Auto) 0.8% (0-5) Basophils (%) (Auto) 0.5% (0-3) Sodium Level 137mEq/L (134-144) Chloride Level 91mEq/L (97-108) Carbon Dioxide Level 35mmol/L (18-29) Blood Urea Nitrogen 12mg/dL (8-27) Creatinine 0.40mg/dL (0.57-1.00) Estimat Glomerular Filtration Rate 226mL/min (>59) Glucose Level 121mg/dL (60-99) Calcium Level 10.2mg/dL (8.5-10.1) Total Bilirubin 0.5mg/dL (0.0-1.2) Aspartate Amino Transf (AST/SGOT) 66U/L (0-50) Alanine Aminotransferase (ALT/SGPT) 56U/L (0-32) Alkaline Phosphatase 80U/L (25-165) Total Protein 7.2g/dL (6.4-8.4) Albumin 4.1g/dL (3.4-5.0) Test 11/29/16 20:20 Potassium Level 4.6mEq/L (3.5-5.2) Lactic Acid Level 3.2mmol/L (0.4-2.0) Attending Statement The patient was seen and examined together with Dr. Brar on 11/29/2016 and I agree with the history, exam and plan as outlined in the note above. . Nba Brar DO Nov 30, 2016 18:07 Mike Hercules MD Dec 01, 2016 17:50 Reported) Budesonide/Formoterol 160-4.5 mcg Inh (Symbicort 160-4.5 mcg Inh) 120 Puff Inhaler 1 PUFF INHALATION BID (Reported) Clopidogrel (Clopidogrel) 75 Mg Tablet 75 MG PO DIRECTED (Reported) Every other day Glimepiride (Glimepiride) 2 Mg Tablet 2 MG PO DAILY (Reported) Isosorbide MN ER (Isosorbide MN ER) 30 Mg Tab.er.24h 30 MG PO DAILY (Reported) Magnesium Hydroxide (Milk of Magnesia) 400 Mg/5 Ml Oral.susp 400 MG PO HS ( Reported) Minocycline (Minocycline) 50 Mg Capsule 50 MG PO DAILY (Reported) May increase to 2 capsules with flares [place]-3/Dha/Epa/Fish Oil (Fish Oil 1,000 mg Softgel) 1 Each Capsule 1 EACH PO BID (Reported) Venlafaxine ER (Venlafaxine ER) 150 Mg Cap.er.24h 150 MG PO DAILY (Reported) As needed Acetaminophen (Acetaminophen) 325 Mg Capsule 325 MG PO PRN For Pain (Reported) Ipratropium/Albuterol Sulfate (Iprat-Albut 0.5-3(2.5) mg/3 mL Inhalant Soln) 3 Ml Ampul.neb 3 ML IH Q6 PRN PRN For Shortness of Breath (Reported) Nitroglycerin SL (Nitroglycerin SL) 0.4 Mg Tab.subl 0.4 MG SL PRN For Chest Pain (Reported) Miscellaneous Medications Clobetasol Propionate/Emoll (Clobetasol Emollnt 0.05% Foam) 50 Gm Foam 50 GM TP (Reported) Nba Brar A DO Nov 30, 2016 18:07 7.2g/dL (6.4-8.4) Albumin 4.1g/dL (3.4-5.0) Test 11/29/16 20:20 Potassium Level 4.6mEq/L (3.5-5.2) Lactic Acid Level 3.2mmol/L (0.4-2.0) Discharge Medications Discharge Medications Albuterol HFA (Proair HFA) 8.5 Gm Hfa.aer.ad 2 PUFFS INHALATION Q4H (Reported) Arformoterol Tartrate (Brovana) 15 Mcg/2 Ml Vial.neb 15 MCG NEB BID Prescribed by: NASIM MELENDEZ DO Aspirin (Aspirin) 81 Mg Tablet 81 MG PO DAILY (Reported) Atenolol (Atenolol) 25 Mg Tablet 25 MG PO BID (Reported) Atorvastatin Calcium (Atorvastatin Calcium) 40 Mg Tablet 40 MG PO DAILY ( Reported) Budesonide/Formoterol 160-4.5 mcg Inh (Symbicort 160-4.5 mcg Inh) 120 Puff Inhaler 1 PUFF INHALATION BID (Reported) Clopidogrel (Clopidogrel) 75 Mg Tablet 75 MG PO DIRECTED (Reported) Every other day Glimepiride (Glimepiride) 2 Mg Tablet 2 MG PO DAILY (Reported) Isosorbide MN ER (Isosorbide MN ER) 30 Mg Tab.er.24h 30 MG PO DAILY (Reported) Magnesium Hydroxide (Milk of Magnesia) 400 Mg/5 Ml Oral.susp 400 MG PO HS ( Reported) Minocycline (Minocycline) 50 Mg Capsule 50 MG PO DAILY (Reported) May increase to 2 capsules with flares [place]-3/Dha/Epa/Fish Oil (Fish Oil 1,000 mg Softgel) 1 Each Capsule 1 EACH PO BID (Reported) Venlafaxine ER (Venlafaxine ER) 150 Mg Cap.er.24h 150 MG PO DAILY (Reported) As needed Acetaminophen (Acetaminophen) 325 Mg Capsule 325 MG PO PRN For Pain (Reported) Ipratropium/Albuterol Sulfate (Iprat-Albut 0.5-3(2.5) mg/3 mL Inhalant Soln) 3 Ml Ampul.neb 3 ML IH Q6 PRN PRN For Shortness of Breath (Reported) Nitroglycerin SL (Nitroglycerin SL) 0.4 Mg Tab.subl 0.4 MG SL PRN For Chest Pain (Reported) Miscellaneous Medications Clobetasol Propionate/Emoll (Clobetasol Emollnt 0.05% Foam) 50 Gm Foam 50 GM TP (Reported) Nba Brar DO Nov 30, 2016 18:07
== END 2016-11-29 21:30 | disposition expired | DRG 189 ==
LOC: EDUNIT# 01:46 → EDBD 01:46 → SED 03:05 → PCC 03:51
PROVIDERS: ADMIT Internal Medicine; ATTEND Internal Medicine
PROC: 4A033R1 Measurement of Arterial Saturation, Peripheral, Percutaneous Approach (ICD-10-PCS; principal; 2016-11-29)
DX: J96.21 Acute and chronic respiratory failure with hypoxia (principal); J12.3 Human metapneumovirus pneumonia; J44.1 Chronic obstructive pulmonary disease with (acute) exacerbation; Z99.81 Dependence on supplemental oxygen; I25.10 Atherosclerotic heart disease of native coronary artery without angina pectoris; G47.33 Obstructive sleep apnea (adult) (pediatric); E11.65 Type 2 diabetes mellitus with hyperglycemia; E78.5 Hyperlipidemia, unspecified; I10 Essential (primary) hypertension; F32.9 Major depressive disorder, single episode, unspecified; Z87.891 Personal history of nicotine dependence; Z66 Do not resuscitate